=== PATIENT | female | born 1970 | race Two or more races ===

== ENCOUNTER 2017-08-27 09:40 | Emergency (ER) | payer MEDICAID ==
[~2017-08-27] VITALS: Ht 170.2 cm; Wt 74.8 kg
[2017-08-27] MEDS ORDERED: Bicillin LA 2,400,000 units IM ONE (10:30)
[2017-08-27] MEDS ORDERED: IBUPROFEN600 MG ORAL (10:51)
[2017-08-27 10:59] VITALS: BP 115/76
--- NOTE | 2017-08-27 14:17 | Emergency Room Report ---
History of Present Illness General Chief Complaint: Toothache Source: Patient Present Illness HPI Patient is a 47-year-old female increased right-sided facial swelling. The patient gradual onset of symptoms. Patient having prior history of methamphetamine use. She states she's currently in rehabilitation. She stated she took Mousie for pain. Patient denies any fever. She reported having some facial swelling to her right cheek. Allergies: Coded Allergies: No Known Allergies (Unverified , 08/27/17) Patient History Past Medical History: see triage record Reviewed Nursing Documentation: PMH: Agreed, PSxH: Agreed Nursing Documentation-PMH Past Medical History: No History, Except For Hx Cancer: Yes - LUNG Review of Systems All Other Systems: negative except mentioned in HPI Physical Exam Vital Signs Date Time Temp Pulse Resp B/P (MAP) Pulse Ox O2 Delivery O2 Flow Rate FiO2 08/27/17 09:51 97.7 81 20 110/74 97 Room Air General Appearance: well appearing, no apparent distress, alert, GCS 15 Head: normocephalic, atraumatic ENT: hearing grossly normal, normal voice, other - multiple dental fracture and caries Neck: full range of motion, supple Respiratory: no respiratory distress, speaking full sentences Cardiovascular #1: normal inspection Gastrointestinal: normal inspection Musculoskeletal: normal inspection, back normal, no calf tenderness Neurologic: normal gait Psychiatric: mood/affect normal Skin: no rash Medical Decision Making Diagnostic Impression: Primary Impression: Dental infection ER Course Patient presented right-sided upper dental pain. Differential diagnosis included but was not limited to trigeminal neuralgia, dental abscess, dry socket , osteomyelitis, nerve injury. The patient was noted to have a benign exam. The patient was given IM penicillin for dental infection. The patient is advised to follow up with primary care doctor in 1-2 days. Patient is advised to return if any worsening condition or if any changes in status that are concerning. Last Vital Signs Date Time Temp Pulse Resp B/P (MAP) Pulse Ox O2 Delivery O2 Flow Rate FiO2 08/27/17 10:59 97.7 88 18 115/76 99 Room Air Status: improved Disposition: HOME, SELF-CARE Condition: Stable Scripts Ibuprofen* (MOTRIN*) 600 Mg Tablet 600 MG ORAL Q8H Y for For Pain, #30 TAB 0 Refills Prov: Alfonso Novoa 08/27/17 Patient Instructions: Dental Pain, [id number] Alfonso Novoa Aug 27, 2017 14:17
== END 2017-08-27 10:59 | disposition home or self-care (01) ==
LOC: EMR 10:41
DX: K04.7 Periapical abscess without sinus (principal); Z85.118 Personal history of other malignant neoplasm of bronchus and lung
CPT/HCPCS: 99283